=== PATIENT | female | born 1950 | race Caucasian/White ===

== ENCOUNTER 2017-03-17 17:23 | Emergency (ER) | payer OTHER ==
[2017-03-17 17:33] VITALS: RESP 18
--- NOTE | 2017-03-17 18:23 | EDPHY ---
HPI/HX/ROS/PE/MDM Narrative: CHIEF COMPLAINT: Hypertension HISTORY OF PRESENT ILLNESS: The patient is a 67-year-old female with history of CABG and hypertension presenting with hypertension. The patient stopped Coreg 6 weeks ago. She recently decreased Lisinopril from 20mg to 15mg in order to have more energy for a backpacking excursion. Over the past three days her blood pressure has been increasing. She has had difficulty sleeping at night. She reports an "inner jitteriness". When gardening she feels lightheaded after standing up. She took her Coreg this morning to help with her blood pressure and subsequently had blood pressure of 200/100. She states she has chronic chest pain which worsens when blood pressure elevates, which it did today. She denies fever, chills, shortness of breath, palpitations, vomiting, diarrhea, urinary complaints, headache. REVIEW OF SYSTEMS: Aside from elements discussed in the HPI, a comprehensive 10-point review of systems was reviewed and is negative. PAST MEDICAL HISTORY: Hypertension, Hypothyroid, CABG. SOCIAL HISTORY: Daughter at bedside. Nonsmoker. VITAL SIGNS: Reviewed by me GENERAL: Well-developed, well-nourished, resting comfortably in no respiratory distress. HEENT: Atraumatic. Eyes: No icterus, no injection. Mouth: moist mucous membranes. No erythema or lesions. Neck: supple with no adenopathy. LUNGS: Clear to auscultation bilaterally, no wheezes, rhonchi or rales. CARDIAC: Regular rate and rhythm, no rubs, murmurs or gallops. ABDOMEN: Soft, nontender, nondistended, bowel sounds normal. BACK: No CVA tenderness. EXTREMITIES: No trauma. No edema. Range of motion is normal throughout. NEURO: Alert and oriented, grossly nonfocal. SKIN: Warm and dry, no rash. PSYCHIATRIC: Normal mentation, no agitation. Portions of this note were transcribed by a remote medical coder. I personally performed a history, physical exam, medical decision making, and confirmed accuracy of information the transcribed note. ED Course: Patient presents with hypertension after recently altering her blood pressure medication. Plan to check Troponin, kidney function, CBC, and thyroid. 12-LEAD EKG: Please see the full report in [facility]. My interpretation: Sinus rhythm, no acute ischemic changes. Laboratory evaluation including troponin, CBC, and chemistries are normal. The patient's TSH, free T4 and T3 are pending. Patient will follow up regarding these results with her primary care physician tomorrow. Patient's blood pressure gradually diminished on its own. I held a long conversation with the patient and her daughter. We discussed essential hypertension. We discussed the importance of remaining on her antihypertensives. I recommended a long discussion with her primary care physician to discuss various class of anti hypertensives and their side effect profiles. We also discussed considerations regarding anxiety, and hyperventilation. Patient and her daughter feel comfortable being discharged. Blood pressure on discharge is 153/93. MDM: Differential diagnoses for the patient's symptom complex was considered including but not limited to medication noncompliance, essential hypertension, hyperthyroidism, secondary hypertension, anxiety, panic attack, depression, palpitations, hypokalemia, arrhythmias. - Data Points Laboratory Results: Laboratory Results 03/17/17 18:46 03/17/17 18:46 General Time Seen by Provider: 03/17/17 18:06 Initial Vital Signs: Initial Vital Signs Temperature (C) 36.6 C 03/17/17 17:29 Heart Rate 77 03/17/17 17:29 Respiratory Rate 18 03/17/17 17:29 Blood Pressure 197/113 H 03/17/17 17:29 O2 Sat (%) 97 03/17/17 17:29 O2 Delivery Mode Room Air Allergies/Adverse Reactions: No Known Allergies Allergy (Verified 03/17/17 17:27) Home Medications: Medication Instructions Recorded Aspirin [Aspirin 81mg (*)] 81 mg PO DAILY #0 tab 10/16/15 Carvedilol [Coreg (*)] 3.125 mg PO BIDMEAL #60 tab 10/16/15 Lisinopril [Zestril 10 mg (*)] 10 mg PO DAILY #30 tab 10/16/15 Levothyroxine [Synthroid 100 mcg 100 mcg PO DAILY06 #30 tab 10/20/15 (*)] Departure - Departure Disposition: Home, Routine, Self-Care Clinical Impression: Hypertension Qualifiers: Hypertension type: essential hypertension Qualified Code(s): I10 - Essential ( primary) hypertension Condition: Good Instructions: Hypertension (ED) Additional Instructions: Please followup with your primary care physician tomorrow as scheduled. Your TSH, free T4, and free T3 are pending at this time. Referrals: Neetu Henry MD [Primary Care Provider] - As per Instructions Report Scribed for: Jody Brown Report Scribed by: Temitope Wills Date of Report: 03/17/17 Time of Report: 18:23
--- NOTE | 2017-03-17 18:44 | CPEKG ---
Heart Rate: 62 RR Interval: 968 P-R Interval: 144 QRSD Interval: 74 QT Interval: 432 QTC Interval: 439 P Immaculata: 76 QRS Immaculata: 72 T Wave Immaculata: 53 EKG Severity - OTHERWISE NORMAL ECG - EKG Impression: SINUS RHYTHM EKG Impression: ATRIAL PREMATURE COMPLEX Electronically Signed By: Jody Brown 17-Mar-2017 21:22:05
[2017-03-17 19:38] LABS: ANION GAP 13 mEq/L (8-16); CALCIUM 9.9 mg/dL (8.5-10.4); CARBON DIOXIDE 19 mEq/l (22-31); CHLORIDE 107 mEq/L (97-110); GLOMERULAR FILTRATION RATE 55; GLUCOSE 95 mg/dL (70-100); POTASSIUM 4.7 mEq/L (3.5-5.2); SODIUM 139 mEq/L (134-144)
[2017-03-17 19:44] LABS: % IMMATURE GRANULYOCYTES 0.3 % (0.0-1.1); ABSOLUTE IMMATURE GRANULOCYTES 0.02 10^3/uL (0.00-0.10); ADD DIFF? NO; ADD MORPH? NO; ADD SCAN? NO; ATYPICAL LYMPHOCYTE FLAG 20 (0-99); FRAGMENT RBC FLAG 0 (0-99); HEMATOCRIT 44.7 % (38.0-47.0); HEMOGLOBIN 14.9 g/dL (12.6-16.3); LEFT SHIFT FLG 0 (0-99); LIPEMIA HEMOLYSIS FLAG 80 (0-99); MEAN CELL HEMOGLOBIN 29.5 pg (27.9-34.1); MEAN CELL HEMOGLOBIN CONCENTR. 33.3 g/dL (32.4-36.7); MEAN CELL VOLUME 88.5 fL (81.5-99.8); PLATELET CLUMPS FLAG 10 (0-99); PLATELET COUNT 256 10^3/uL (150-400); RED BLOOD CELL COUNT 5.05 10^6/uL (4.18-5.33); RED CELL DISTRIBUTION WIDTH 12.8 % (11.5-15.2)
[2017-03-17 19:50] LABS: TROPONIN I < 0.012 ng/mL (0-0.034)
[2017-03-17 20:49] VITALS: BP 153/93; PULSE 68; TEMP 98.2; O2SAT 96
[2017-03-17 20:58] LABS: T3 (TRIIODOTHYRONINE) TOTAL 1.02 ng/mL (0.970-1.690)
== END 2017-03-17 20:50 | disposition home or self-care (01) ==
DX: I10 Essential (primary) hypertension (principal); Z79.82 Long term (current) use of aspirin; Z95.1 Presence of aortocoronary bypass graft
CPT/HCPCS: 84480-90

== ENCOUNTER 2017-12-04 15:40 | Emergency (ER) | payer OTHER ==
[2017-12-04 15:53] VITALS: TEMP 97.8
--- NOTE | 2017-12-04 16:14 | EDPHY ---
H & P Stated Complaint: HIGH BP Time Seen by Provider: 12/04/17 16:01 HPI/ROS: CHIEF COMPLAINT: Hypertension HISTORY OF PRESENT ILLNESS: The patient is a 67-year-old female with a history of 6 vessel CABG 7 years ago. She states that she has a history of hypertension and today noticed that her blood pressure was 180/90. She states that this always make sure very anxious even though she tries not to be. She denies having any chest pain, shortness of breath, headache weakness etc. She called her primary Dr. Henry's office and staff there recommended she come to the ER. She is asymptomatic otherwise. REVIEW OF SYSTEMS: Constitutional: denies: chills, fever, recent illness, recent injury EENTM: denies: blurred vision, double vision, nose congestion Respiratory: denies: cough, shortness of breath Cardiac: denies: chest pain, irregular heart rate, lightheadedness, palpitations Gastrointestinal/Abdominal: denies: abdominal pain, diarrhea, nausea, vomiting, blood streaked stools Genitourinary: denies: dysuria, frequency, hematuria, pain Musculoskeletal: denies: joint pain, muscle pain Skin: denies: lesions, rash, jaundice, bruising Neurological: denies: headache, numbness, paresthesia, tingling, dizziness, weakness Hematologic/Lymphatic: denies: blood clots, easy bleeding, easy bruising Immunologic/allergic: denies: HIV/AIDS, transplant EXAM: GENERAL: Well-appearing, well-nourished and in no acute distress. HEAD: Atraumatic, normocephalic. EYES: Pupils equal round and reactive to light, extraocular movements intact, sclera anicteric, conjunctiva are normal. ENT: TMs normal, nares patent, oropharynx clear without exudates. Moist mucous membranes. NECK: Normal range of motion, supple without lymphadenopathy or JVD. LUNGS: Breath sounds clear to auscultation bilaterally and equal. No wheezes rales or rhonchi. HEART: Regular rate and rhythm without murmurs, rubs or gallops. ABDOMEN: Soft, nontender, normoactive bowel sounds. No guarding, no rebound. No masses appreciated. BACK: No CVA tenderness, no spinal tenderness, step-offs or deformities EXTREMITIES: Normal range of motion, no pitting or edema. No clubbing or cyanosis. NEUROLOGICAL: Cranial nerves II through XII grossly intact. Normal speech, normal gait. 5/5 strength, normal movement in all extremities, normal sensation PSYCH: Normal mood, normal affect. SKIN: Warm, dry, normal turgor, no visible rashes or lesions. Source: Patient Exam Limitations: No limitations - Personal History Current Tetanus/Diphtheria Vaccine: Yes Current Tetanus Diphtheria and Acellular Pertussis (TDAP): Yes Tetanus Vaccine Date: 03/22/2006 - Medical/Surgical History Hx Asthma: No Hx Chronic Respiratory Disease: No Hx Diabetes: No Hx Cardiac Disease: Yes Hx Renal Disease: No Hx Cirrhosis: No Hx Alcoholism: No Hx HIV/AIDS: No Hx Splenectomy or Spleen Trauma: No Other PMH: PSH: CABG- 6 vessels, wisdom teeth;. PMH: HTN; thyroid,cholesterol - Family History Significant Family History: No pertinent family hx - Social History Smoking Status: Never smoked Alcohol Use: Sober Constitutional: Initial Vital Signs Temperature (C) 36.6 C 12/04/17 15:50 Heart Rate 76 12/04/17 15:50 Respiratory Rate 15 12/04/17 15:50 Blood Pressure 184/93 H 12/04/17 15:50 O2 Sat (%) 98 12/04/17 15:50 O2 Delivery Mode Room Air Allergies/Adverse Reactions: No Known Allergies Allergy (Verified 03/17/17 17:27) Home Medications: Medication Instructions Recorded Aspirin [Aspirin 81mg (*)] 81 mg PO DAILY #0 tab 10/16/15 Carvedilol [Coreg (*)] 3.125 mg PO BIDMEAL #60 tab 10/16/15 Lisinopril [Zestril 10 mg (*)] 10 mg PO DAILY #30 tab 10/16/15 Levothyroxine [Synthroid 100 mcg 100 mcg PO DAILY06 #30 tab 10/20/15 (*)] Medical Decision Making ED Course/Re-evaluation: The patient is asymptomatic other than having hypertension. We discussed options. She states that she is always elevated and that it always makes her nervous and when she rechecks it goes up again. She states that she has never too low since she stopped taking Coreg 9 months ago because it is making her sleepy. I suggested that we increase her lisinopril and however keep track of her blood pressure follow up with Dr. Henry. She agrees with this plan. We discussed indications for returning. She feels reassured. She declines medication here and will take her own. Differential Diagnosis: Partial list of the Differential diagnosis considered include but were not limited to; hypertension, anxiety, and although unlikely based on the history and physical exam, I also considered, acute coronary disease, CVA, dissection. I discussed these differential diagnoses and the plan with the patient as well as the usual and expected course. The patient understands that the diagnosis is provisional and that in medicine we are not always correct and that further workup is often warranted. Usual and customary warnings were given. All of the patient's questions were answered. The patient was instructed to return to the emergency department should the symptoms at all worsen or return, otherwise to followup with the physician as we discussed. Departure - Departure Disposition: Home, Routine, Self-Care Clinical Impression: Hypertension Qualifiers: Hypertension type: unspecified Qualified Code(s): I10 - Essential (primary) hypertension Condition: Fair Instructions: Hypertension (ED) Additional Instructions: Increase your lisinopril to 20 mg per day, keep track of your blood pressure and follow up with Dr. Henry. Referrals: Neetu Henry MD [Primary Care Provider] - 5-7 days, call for appt.
[2017-12-04 16:22] VITALS: BP 170/85; PULSE 75; RESP 16; O2SAT 97
== END 2017-12-04 16:22 | disposition home or self-care (01) ==
DX: I10 Essential (primary) hypertension (principal); Z79.82 Long term (current) use of aspirin; Z95.1 Presence of aortocoronary bypass graft

== ENCOUNTER 2018-07-31 11:04 | Emergency (ER) | payer OTHER ==
[2018-07-31] MEDS ORDERED: NS 500 ML IV ONE (11:20)
[2018-07-31 11:46] LABS: PLATELET COUNT 211 10^3/uL (150-400)
--- NOTE | 2018-07-31 13:59 | EDPHY ---
H & P Time Seen by Provider: 07/31/18 11:20 HPI/ROS: HPI Palpitations. 68-year-old female by private vehicle with her daughter. This patient reports that she has had issues in the past with her thyroid medication, levothyroxine and dosing regimens. She reports that because of this she has had on and off palpitations which are thought to be attributed to abnormally high thyroid levels. She reports that for the last 2 days she has had intermittent palpitations more so than usual. She denies any associated chest pain. No shortness of breath. She states that she spoke with her primary care physician Dr. Henry today and was told to come to the emergency department for evaluation. She has been taking 100 mcg of levothyroxine daily. She currently does not have an center rep. ROS: Constitutional: No fever, no chills. No weakness. Eyes: No discharge. No changes in vision. ENT: No sore throat. No nasal congestion or rhinorrhea. Respiratory: No cough. No shortness of breath. Cardiac: No chest pain, as above. Gastrointestinal: No abdominal pain, no vomiting, no diarrhea. Genitourinary: No hematuria. No dysuria or increased frequency with urination. Musculoskeletal: No back pain. No neck pain. No myalgias or arthralgias. Skin: No rashes. Neurological: No headache. No focal weakness or altered sensation. Past medical history: Past medical history includes coronary artery disease with CABG, hypothyroidism, hypertension, as above. Social history: She does not smoke. No alcohol. She is here with her daughter. Physical Exam: General Appearance: Alert, no distress. This patient is responding to questions appropriately and in full sentences. This patient appears well- hydrated and well-nourished. Eyes: Pupils equal and round no pallor or injection. No lid edema, erythema or injection. Respiratory: There are no retractions, lungs are clear to auscultation with good air movement bilaterally. Cardiovascular: Regular rate and rhythm. No murmur appreciated. Neurological: Motor sensory function is grossly intact. Cranial nerves are normal. Gait is normal. Skin: Warm and dry, no rashes. Musculoskeletal: Neck is supple and nontender. Extremities are symmetrical. All joints range without pain or impingement. Psychiatric: No agitation. No depression. Database: EKG: EKG time is 11:19 a.m.; EKG shows a narrow complex normal sinus rhythm with a ventricular rate of 75. PACs noted. Probable left atrial enlargement. The [place], QRS, QT intervals are within normal limits. There are no ST-T wave changes indicative of ischemic or injury pattern. No evidence of right heart strain. Interpreted by me. Imaging: Procedures: Emergency department course: Triage vital signs reviewed. She is hypertensive. Vital signs are otherwise normal. She is afebrile. IV was placed. She was placed on a monitor. EKG was obtained and reviewed by myself. 1:30 p.m., the patient was re-evaluated. She is resting comfortably at this time. Blood pressure is currently 132/89. child monitor shows a narrow complex sinus rhythm with ventricular rate of 89. Results of her emergency department workup discussed with her. Her low TSH was discussed. Free T4 and free T3 are pending at this time. I discussed treatment plan of cutting her thyroid dose from 100 mcg to 50 mcg daily. I also explained that I would provide her with a center rep to follow up with. I discussed her slightly elevated potassium as well. At this time we will treat this through diet. I have also instructed her to follow up with her primary care physician to have this re-evaluated next week. 2:00 p.m., I spoke with center rep Dr. Hill. Case discussed with her in detail. She agrees with emergency department management will see this patient in the office next week. 2:05 p.m., my conversation with endocrinology was discussed with the patient and her daughter. I again reviewed the plan to have her potassium repeated. She has been instructed not to use caffeine or other stimulants. She will follow up with Endocrinology this week as well as her primary care physician to have her potassium rechecked. She feels comfortable going home at this time. Return to emergency department precautions were reviewed thoroughly with her and her daughter. All of their questions were answered. The patient was discharged home in good condition. Differential Diagnosis: The differential diagnosis on this patient includes but is not limited to hyperthyroid state, mild hyperkalemia. Acute coronary syndrome, pulmonary embolism, atrial fibrillation or other arrhythmia unlikely. This represents a partial list of diagnoses considered. These considerations are based on history , physical exam, past history, reassessment and diagnostic testing. Smoking Status: Never smoked Constitutional: Initial Vital Signs Temperature (C) 36.5 C 07/31/18 11:05 Heart Rate 98 07/31/18 11:05 Respiratory Rate 18 07/31/18 11:05 Blood Pressure 182/88 H 07/31/18 11:05 O2 Sat (%) 98 07/31/18 11:05 O2 Delivery Mode Room Air Allergies/Adverse Reactions: No Known Allergies Allergy (Verified 07/31/18 11:05) Home Medications: Medication Instructions Recorded Aspirin [Aspirin 81mg (*)] 81 mg PO DAILY #0 tab 10/16/15 Lisinopril [Zestril 10 mg (*)] 10 mg PO DAILY #30 tab 10/16/15 Levothyroxine [Synthroid 100 mcg 100 mcg PO DAILY06 #30 tab 10/20/15 (*)] Medical Decision Making - Data Points Laboratory Results: Laboratory Results 07/31/18 11:35 07/31/18 11:35 07/31/18 07/31/18 07/31/18 11:38 11:35 11:35 WBC 5.28 10^3/uL 10^3/uL (3.80-9.50) RBC 4.93 10^6/uL 10^6/uL (4.18-5.33) Hgb 14.5 g/dL g/dL (12.6-16.3) Hct 43.9 % % (38.0-47.0) MCV 89.0 fL fL (81.5-99.8) MCH 29.4 pg pg (27.9-34.1) MCHC 33.0 g/dL g/dL (32.4-36.7) RDW 12.3 % % (11.5-15.2) Plt Count 211 10^3/uL 10^3/uL (150-400) MPV 10.2 fL fL (8.7-11.7) Neut % (Auto) 68.9 % % (39.3-74.2) Lymph % (Auto) 20.5 % % (15.0-45.0) [place] % (Auto) 8.5 % % (4.5-13.0) Eos % (Auto) 1.3 % % (0.6-7.6) Baso % (Auto) 0.6 % % (0.3-1.7) Nucleat RBC Rel Count 0.0 % % (0.0-0.2) Absolute Neuts (auto) 3.64 10^3/uL 10^3/uL (1.70-6.50) Absolute Lymphs (auto) 1.08 10^3/uL 10^3/uL (1.00-3.00) Absolute Monos (auto) 0.45 10^3/uL 10^3/uL (0.30-0.80) Absolute Eos (auto) 0.07 10^3/uL 10^3/uL (0.03-0.40) Absolute Basos (auto) 0.03 10^3/uL 10^3/uL (0.02-0.10) Absolute Nucleated RBC 0.00 10^3/uL 10^3/uL (0-0.01) Immature Gran % 0.2 % % (0.0-1.1) Immature Gran # 0.01 10^3/uL 10^3/uL (0.00-0.10) Sodium 138 mEq/L mEq/L (135-145) Potassium 5.3 mEq/L H mEq/L (3.3-5.0) Chloride 108 mEq/L mEq/L (97-110) Carbon Dioxide 21 mEq/l L mEq/l (22-31) Anion Gap 9 mEq/L mEq/L (6-14) BUN 17 mg/dL mg/dL (7-23) Creatinine 0.9 mg/dL mg/dL (0.6-1.0) Estimated GFR > 60 Glucose 103 mg/dL H mg/dL (70-100) Calcium 10.0 mg/dL mg/dL (8.5-10.4) POC Troponin I 0.00 ng/mL ng/mL (0.00-0.08) TSH < 0.015 uIU/mL L uIU/mL (0.465-4.680) Free T4 Free T3 07/31/18 11:25 WBC RBC Hgb Hct MCV MCH MCHC RDW Plt Count MPV Neut % (Auto) Lymph % (Auto) [place] % (Auto) Eos % (Auto) Baso % (Auto) Nucleat RBC Rel Count Absolute Neuts (auto) Absolute Lymphs (auto) Absolute Monos (auto) Absolute Eos (auto) Absolute Basos (auto) Absolute Nucleated RBC Immature Gran % Immature Gran # Sodium Potassium Chloride Carbon Dioxide Anion Gap BUN Creatinine Estimated GFR Glucose Calcium POC Troponin I TSH Free T4 2.59 ng/dL H ng/dL (0.59-2.19) Free T3 4.45 pg/mL pg/mL (2.77-5.27) Medications Given: Discontinued Medications Sodium Chloride (Ns) 500 mls @ 1,000 mls/hr IV EDNOW ONE PRN Reason: Protocol Stop: 07/31/18 11:49 Last Admin: 07/31/18 12:13 Dose: 500 mls Point of Care Test Results: Chemistry 07/31/18 11:38 POC Troponin I 0.00 ng/mL ng/mL (0.00-0.08) Departure - Departure Disposition: Home, Routine, Self-Care Clinical Impression: Palpitations, Hyperthyroidism, Hyperkalemia Condition: Good Instructions: Hyperkalemia (ED), Hyperthyroidism (ED) Additional Instructions: Read and follow provided instructions. Follow-up with your primary care physician on Thursday or Thursday of this week for re-evaluation and repeat of your potassium levels. This can also be done by endocrinology. Follow-up with Endocrinology as discussed early this week for further management of your thyroid medication and thyroid levels. I discussed you're presentation to the emergency department in test results that we obtained here with her. Decreased her thyroid medication to 50 mcg daily. Return to the emergency department for worsening symptoms, worsening palpitations, chest pain, shortness of breath, lightheadedness or other serious concerns. Referrals: Neetu Henry MD [Primary Care Provider] - As per Instructions Amy Hill MD [Medical Doctor] - As per Instructions
[2018-07-31 14:10] VITALS: BP 168/87
--- NOTE | 2018-07-31 15:29 | CPEKG ---
Test Reason : OPEN Blood Pressure : / mmHG Vent. Rate : 075 BPM Atrial Rate : 075 BPM P-R Int : 124 ms QRS Dur : 087 ms QT Int : 385 ms P-R-T Axes : 072 074 060 degrees QTc Int : 430 ms Sinus rhythm Atrial premature complex Probable left atrial enlargement Confirmed by Tomeka Pritchard ([id number]) on 07/31/2018 3:29:04 PM Referred By: Confirmed By:Tomeka Pritchard
== END 2018-07-31 14:20 | disposition home or self-care (01) ==
DX: R00.2 Palpitations (principal); E03.9 Hypothyroidism, unspecified; E87.5 Hyperkalemia; E86.9 Volume depletion, unspecified
CPT/HCPCS: 84481-90; 84484-PO

== ENCOUNTER 2019-01-27 10:35 | Emergency (ER) | payer OTHER ==
--- NOTE | 2019-01-27 12:07 | CPEKG ---
Test Reason : OPEN Blood Pressure : / mmHG Vent. Rate : 072 BPM Atrial Rate : 068 BPM P-R Int : 127 ms QRS Dur : 083 ms QT Int : 387 ms P-R-T Axes : 068 077 060 degrees QTc Int : 424 ms Sinus rhythm Left atrial enlargement Probable anteroseptal infarct, old Confirmed by Tae Hernandez ([id number] on 01/27/2019 12:06:55 PM Referred By: PHYSICIAN ED Confirmed By:Tae Hernandez
--- NOTE | 2019-01-27 12:30 | EDPHY ---
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 She also has frequent palpitations. She has had multiple workups in the ER as well as with Cardiology Dr. 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 They have never been able to find a cause for her continued chest pressure and occasional palpitations. She had had a negative catheterization in 2016. She is prescribed Ativan which she states helps slightly but she is concerned to take more than a quarter of a tablet. Today she has had her baseline chest pressure as well as mild palpitations for the last 3 days. She states that she avoids coming to the ER because they always tell her they cannot find anything wrong. She denies shortness of breath. She denies recent fevers or illness. No cough. No nausea vomiting or GI symptoms. No dizziness or lightheadedness. No focal deficits or weakness. She states that her symptoms have improved significantly since she arrived in the ER. Severity: Moderate Modifying factors: None REVIEW OF SYSTEMS: Constitutional: denies: chills, fever, recent illness, recent injury EENTM: denies: blurred vision, double vision, nose congestion Respiratory: denies: cough, shortness of breath Cardiac: See HPI, symptoms now improving Gastrointestinal/Abdominal: denies: abdominal pain, diarrhea, nausea, vomiting, blood streaked stools Genitourinary: denies: dysuria, frequency, hematuria, pain Musculoskeletal: denies: joint pain, muscle pain Skin: denies: lesions, rash, jaundice, bruising Neurological: denies: headache, numbness, paresthesia, tingling, dizziness, weakness Hematologic/Lymphatic: denies: blood clots, easy bleeding, easy bruising Immunologic/allergic: denies: HIV/AIDS, transplant 10 systems reviewed and negative except as noted EXAM: GENERAL: Well-appearing, well-nourished and in no acute distress. HEAD: Atraumatic, normocephalic. EYES: Pupils equal round and reactive to light, extraocular movements intact, sclera anicteric, conjunctiva are normal. ENT: TMs normal, nares patent, oropharynx clear without exudates. Moist mucous membranes. NECK: Normal range of motion, supple without lymphadenopathy or JVD. LUNGS: Breath sounds clear to auscultation bilaterally and equal. No wheezes rales or rhonchi. HEART: Regular rate and rhythm without murmurs, rubs or gallops. ABDOMEN: Soft, nontender, normoactive bowel sounds. No guarding, no rebound. No masses appreciated. BACK: No CVA tenderness, no spinal tenderness, step-offs or deformities EXTREMITIES: Normal range of motion, no pitting or edema. No clubbing or cyanosis. NEUROLOGICAL: Cranial nerves II through XII grossly intact. Normal speech, normal gait. 5/5 strength, normal movement in all extremities, normal sensation , normal reflexes PSYCH: Normal mood, normal affect. SKIN: Warm, dry, normal turgor, no visible rashes or lesions. Source: Patient Exam Limitations: No limitations - Personal History Current Tetanus Diphtheria and Acellular Pertussis (TDAP): Unsure Tetanus Vaccine Date: 03/22/2006 - Medical/Surgical History Hx Asthma: No Hx Chronic Respiratory Disease: No Hx Diabetes: No Hx Cardiac Disease: Yes Hx Renal Disease: No Hx Cirrhosis: No Hx Alcoholism: No Hx HIV/AIDS: No Hx Splenectomy or Spleen Trauma: No Other PMH: PSH: CABG- 6 vessels, wisdom teeth;. PMH: HTN; thyroid,cholesterol - Family History Significant Family History: No pertinent family hx - Social History Smoking Status: Never smoked Alcohol Use: None Constitutional: Initial Vital Signs Temperature (C) 36.4 C 01/27/19 10:39 Heart Rate 84 01/27/19 10:39 Respiratory Rate 18 01/27/19 10:39 Blood Pressure 188/83 H 01/27/19 10:39 O2 Sat (%) 98 01/27/19 10:39 O2 Delivery Mode Room Air Allergies/Adverse Reactions: No Known Allergies Allergy (Verified 01/27/19 10:38) Home Medications: Medication Instructions Recorded Aspirin [Aspirin 81mg (*)] 81 mg PO DAILY #0 tab 10/16/15 Lisinopril [Zestril 10 mg (*)] 10 mg PO DAILY #30 tab 10/16/15 Levothyroxine [Synthroid 100 mcg 100 mcg PO DAILY06 #30 tab 10/20/15 (*)] Crestor 01/27/19 Diazepam [Valium 5 MG (*)] 5 mg PO TID PRN #10 tab 01/27/19 Propranolol HCl 01/27/19 Medical Decision Making - Diagnostics EKG Interpretation: An EKG obtained and was read and documented in trace view. Please see trace view for full reading and report. Sinus rhythm, no acute ischemic changes, similar to previous ED Course/Re-evaluation: Patient is well-appearing. She states that she is now centrally asymptomatic. She is somewhat frustrated that her EKG and troponin are negative. We will continue to wait for the chemistry panel. She declined workup for PE. She does not have any significant risk factors other than her age. No shortness of breath or hypoxia or tachycardia recent travel, smoking, leg pain etc. She is asking for referral to a new primary care physician. 1:00 p.m. the patient's blood work was rejected except for her troponin which is negative. She states that she does not want a her blood redrawn and is now asymptomatic and wishes to go home. She is grateful for referral to Dr. Perry. Discussed indications for returning. Differential Diagnosis: Partial list of the Differential diagnosis considered include but were not limited to; palpitations, anxiety, chronic chest pain, arrhythmia and although unlikely based on the history and physical exam, I also considered pneumonia, PE , dissection, pneumothorax. I discussed these differential diagnoses and the plan with the patient as well as the usual and expected course. The patient understands that the diagnosis is provisional and that in medicine we are not always correct and that further workup is often warranted. Usual and customary warnings were given. All of the patient's questions were answered. The patient was instructed to return to the emergency department should the symptoms at all worsen or return, otherwise to followup with the physician as we discussed. - Data Points Laboratory Results: Laboratory Results 01/27/19 11:30 01/27/19 01/27/19 11:38 11:30 Sodium REJ Potassium REJ Chloride REJ Carbon Dioxide REJ Anion Gap REJ BUN REJ Creatinine REJ Estimated GFR REJ Glucose REJ Calcium REJ POC Troponin I 0.00 ng/mL ng/mL (0.00-0.08) Point of Care Test Results: Chemistry 01/27/19 11:38 POC Troponin I 0.00 ng/mL ng/mL (0.00-0.08) Departure - Departure Disposition: Home, Routine, Self-Care Clinical Impression: Palpitations Condition: Fair Instructions: Heart Palpitations (ED) Referrals: Win Perry MD [Medical Doctor] - 2-3 days, call for appt. Neetu Henry MD [Primary Care Provider] - As per Instructions Feliciano Palacios MD [Medical Doctor] - As per Instructions Prescriptions: Diazepam [Valium 5 MG (*)] 5 mg PO TID PRN #10 tab PRN Reason: Palpitations
[2019-01-27 13:27] VITALS: BP 163/86
== END 2019-01-27 13:25 | disposition home or self-care (01) ==
DX: R00.2 Palpitations (principal)
CPT/HCPCS: 84484-ER